=== PATIENT | male | born 1995 | race Caucasian/White ===

== ENCOUNTER 2020-07-22 16:07 | Emergency (ER) | payer SELFPAY ==
--- NOTE | 2020-07-22 16:56 | ER ---
Nurse's Notes [facility] Name: Levon Walter Age: 25 yrs Sex: Male : 1995 Arrival Date: 07/22/2020 Time: 16:14 Bed 17 Private MD: Diagnosis: Sialoadenitis, unspecified Presentation: 07/22 16:17 Chief complaint: Patient states: Left cheek swelling and pain for 2 days. No known ll1 fever. Coronavirus screen: Client denies travel out of the [place] in the last 14 days. At this time, the client does not indicate any symptoms associated with coronavirus-19. Ebola Screen: Patient denies travel to an Ebola-affected area in the 21 days before illness onset. Initial Sepsis Screen: Does the patient meet any 2 criteria? No. Patient's initial sepsis screen is negative. Risk Assessment: Do you want to hurt yourself or someone else? Patient reports no desire to harm self or others. Onset of symptoms was July 21, 2020. 16:17 Method Of Arrival: Ambulatory ll1 16:17 Acuity: LILA 3 ll1 Historical: - Allergies: 16:19 No Known Allergies; ll1 - PSHx: 16:19 None; ll1 - Immunization history:: Flu vaccine is not up to date. - Social history:: Smoking status: Patient reports the use of cigarette tobacco products, smokes one-half pack cigarettes per day, Patient/guardian denies using alcohol, street drugs. Screenin:30 Abuse screen: Denies threats or abuse. Denies injuries from another. Nutritional jl7 screening: No deficits noted. Tuberculosis screening: No symptoms or risk factors identified. Fall Risk None identified. Assessment: 16:30 General: Appears in no apparent distress. uncomfortable, Behavior is calm, cooperative, jl7 appropriate for age. Pain: Complains of pain in left jaw Pain currently is 10 out of 10 on a pain scale. Neuro: Level of Consciousness is awake, alert, obeys commands, Oriented to person, place, time, situation. Cardiovascular: Patient's skin is warm and dry. Respiratory: Airway is patent Respiratory effort is even, unlabored, Respiratory pattern is regular, symmetrical. Derm: Skin is pink, warm \T\ dry. Musculoskeletal: Swelling present in left jaw. Vital Signs: 16:17 BP 127 / 96; Pulse 69; Resp 16; Temp 98.4; Pulse Ox 100% ; Pain 10/10; ll1 ED Course: 16:14 Patient arrived in ED. mr 16:18 Triage completed. ll1 16:19 Arm band placed on Patient placed in an exam room, on a stretcher. ll1 16:21 Cierra Whyte, RN is Primary Nurse. jl7 16:21 [facility] Jim[facility]C [facility]. snw 16:21 Cristian Kuhn MD is Attending Physician. snw 16:30 Patient has correct armband on for positive identification. Bed in low position. Call jl7 light in reach. Side rails up X 1. 17:08 No provider procedures requiring assistance completed. Patient did not have IV access jl7 during this emergency room visit. Administered Medications: 17:05 Drug: Augmentin 875 mg Route: PO; jl7 17:06 Follow up: Response: Medication administered at discharge. jl7 17:06 Drug: [place] 5 mg-325 mg 1 tabs Route: PO; jl7 17:06 Follow up: Response: Medication administered at discharge. jl7 Outcome: 16:55 Discharge ordered by . snw 17:08 Discharged to home ambulatory. jl7 17:08 Condition: stable 17:08 Discharge instructions given to patient, Instructed on discharge instructions, follow up and referral plans. medication usage, Demonstrated understanding of instructions, follow-up care, medications, Prescriptions given X 2. 17:08 Patient left the ED. jl7 Signatures: Maru Jimenez FNP-C BREAKER UP-Csnw Vy Lei mr Cierra Whyte, [facility] SIMON jl7 Dereje James RN RN ll1
--- NOTE | 2020-07-22 16:56 | EDPHYS ---
Physician Documentation [facility] Name: eLvon Walter Age: 25 yrs Sex: Male : 1995 Arrival Date: 07/22/2020 Time: 16:14 Bed 17 Private MD: ED Physician Cristian Kuhn HPI: 07/22 21:27 This 25 yrs old Male presents to ER via Ambulatory with complaints of Facial snw Swelling. 21:27 Onset: The symptoms/episode began/occurred suddenly, 2 day(s) ago, and became worse and snw became persistent. Associated signs and symptoms: The patient has no apparent associated signs or symptoms. The patient has not experienced similar symptoms in the past. The patient has not recently seen a physician. Historical: - Allergies: 16:19 No Known Allergies; ll1 - PSHx: 16:19 None; ll1 - Immunization history:: Flu vaccine is not up to date. - Social history:: Smoking status: Patient reports the use of cigarette tobacco products, smokes one-half pack cigarettes per day, Patient/guardian denies using alcohol, street drugs. ROS: 21:27 Constitutional: Negative for fever, chills, and weight loss, Eyes: Negative for injury, snw pain, redness, and discharge, ENT: Negative for injury, pain, and discharge, left cheek tender, edematous Neck: Negative for injury, pain, and swelling, Cardiovascular: Negative for chest pain, palpitations, and edema, Respiratory: Negative for shortness of breath, cough, wheezing, and pleuritic chest pain, Abdomen/GI: Negative for abdominal pain, nausea, vomiting, diarrhea, and constipation, Back: Negative for injury and pain, : Negative for injury, bleeding, discharge, and swelling, MS/Extremity: Negative for injury and deformity, Skin: Negative for injury, rash, and discoloration, Neuro: Negative for headache, weakness, numbness, tingling, and seizure, Psych: Negative for depression, anxiety, suicide ideation, homicidal ideation, and hallucinations. Exam: 21:21 Constitutional: This is a well developed, well nourished patient who is awake, alert, snw and in no acute distress. Head/Face: Normocephalic, atraumatic. Left upper, lateral cheek with edema, tenderness, no dental pain, no noted abscess Eyes: Pupils equal round and reactive to light, extra-ocular motions intact. Lids and lashes normal. Conjunctiva and sclera are non-icteric and not injected. Cornea within normal limits. Periorbital areas with no swelling, redness, or edema. ENT: Nares patent. No nasal discharge, no septal abnormalities noted. Tympanic membranes are normal and external auditory canals are clear. Oropharynx with no redness, swelling, or masses, exudates, or evidence of obstruction, uvula midline. Mucous membranes moist. Neck: Trachea midline, no thyromegaly or masses palpated, and no cervical lymphadenopathy. Supple, full range of motion without nuchal rigidity, or vertebral point tenderness. No Meningismus. Chest/axilla: Normal chest wall appearance and motion. Nontender with no deformity. No lesions are appreciated. Cardiovascular: Regular rate and rhythm with a normal S1 and S2. No gallops, murmurs, or rubs. Normal PMI, no JVD. No pulse deficits. Respiratory: Lungs have equal breath sounds bilaterally, clear to auscultation and percussion. No rales, rhonchi or wheezes noted. No increased work of breathing, no retractions or nasal flaring. Abdomen/GI: Soft, non-tender, with normal bowel sounds. No distension or tympany. No guarding or rebound. No evidence of tenderness throughout. Back: No spinal tenderness. No costovertebral tenderness. Full range of motion. Skin: Warm, dry with normal turgor. Normal color with no rashes, no lesions, and no evidence of cellulitis. MS/ Extremity: Pulses equal, no cyanosis. Neurovascular intact. Full, normal range of motion. Neuro: Awake and alert, GCS 15, oriented to person, place, time, and situation. Cranial nerves II-XII grossly intact. Motor strength 5/5 in all extremities. Sensory grossly intact. Cerebellar exam normal. Normal gait. Psych: Awake, alert, with orientation to person, place and time. Behavior, mood, and affect are within normal limits. Vital Signs: 16:17 BP 127 / 96; Pulse 69; Resp 16; Temp 98.4; Pulse Ox 100% ; Pain 10/10; ll1 MDM: 16:21 Patient medically screened. snw 21:26 Data reviewed: vital signs, nurses notes. Data interpreted: Pulse oximetry: on room air snw is 100 %. Interpretation: normal. Counseling: I had a detailed discussion with the patient and/or guardian regarding: the historical points, exam findings, and any diagnostic results supporting the discharge/admit diagnosis, the need for outpatient follow up, to return to the emergency department if symptoms worsen or persist or if there are any questions or concerns that arise at home. Counseling: I had a detailed discussion with the patient and/or guardian regarding: smoking cessation. Special discussion: Based on the history and exam findings, there is no indication for further emergent testing or inpatient evaluation. I discussed with the patient/guardian the need to see a dentist for further evaluation of the symptoms. I discussed with the patient/guardian the need to see the ENT specialist for further evaluation of the symptoms. Administered Medications: 17:05 Drug: Augmentin 875 mg Route: PO; [facility] 17:06 Follow up: Response: Medication administered at discharge. [facility] 17:06 Drug: [place] 5 mg-325 mg 1 tabs Route: PO; [facility] 17:06 Follow up: Response: Medication administered at discharge. [facility] Disposition: 07/22/20 16:55 Discharged to Home. Impression: Sialoadenitis, unspecified. - Condition is Stable. - Discharge Instructions: Parotitis, Steps to Quit Smoking, Smoking Hazards, Diet and Dental Disease, Cryotherapy, Heat Therapy. - Prescriptions for Augmentin 875- 125 mg Oral Tablet - take 1 tablet by ORAL route every 12 hours for 10 days; 20 tablet. Mobic 7.5 mg Oral Tablet - take 1 tablet by ORAL route once daily take with food; 20 tablet. - Work release form, Medication Reconciliation Form, Thank You Letter, Antibiotic Education, Prescription Opioid Use form. - Follow up: Emergency Department; When: As needed; Reason: Worsening of condition. Follow up: Private Physician; When: 2 - 3 days; Reason: Recheck today's complaints, Continuance of care, Re-evaluation by your physician. Addendum: 07/27/2020 07:01 Co-signature as Attending Physician, Cristian Kuhn MD. r n Signatures: Maru Jimenez, MARRIAGE AND FAMILY SOCIAL WORKER-C MARRIAGE AND FAMILY SOCIAL WORKER-Csnw Cristian Kuhn MD MD rn Leal, Jahala RN RN jl7 Dereje James RN RN ll1 Corrections: (The following items were deleted from the chart) 09/16 17:08 16:55 07/22/2020 16:55 Discharged to Home. Impression: Sialoadenitis, unspecified. jl7 Condition is Stable. Forms are Medication Reconciliation Form, Thank You Letter, Antibiotic Education, Prescription Opioid Use. Follow up: Emergency Department; When: As needed; Reason: Worsening of condition. Follow up: Private Physician; When: 2 - 3 days; Reason: Recheck today's complaints, Continuance of care, Re-evaluation by your physician. snw
[2020-07-22] MEDS ORDERED: AMOX/K CLAV 875 MG TAB ONE (17:12)
[2020-07-22] MEDS ORDERED: HYDROCODONE/APAP 5/325 MG TAB ONE (17:12)
[2020-07-22 17:52] VITALS: BP 127/96; TEMP 98.4; O2SAT 100
== END 2020-07-22 17:08 | disposition home or self-care (01) ==
LOC: ER 16:07
DX: K11.20 Sialoadenitis, unspecified (principal); F17.210 Nicotine dependence, cigarettes, uncomplicated
CPT/HCPCS: 99283

== ENCOUNTER 2020-07-23 14:45 | Emergency (ER) | payer SELFPAY ==
[2020-07-23] MEDS ORDERED: FENTANYL CITR 100 MCG/2 ML ONE (18:05)
[2020-07-23] MEDS ORDERED: NA CHLORIDE 0.9% 2,000 ML ONE (18:05)
[2020-07-23] MEDS ORDERED: CLINDAMYCIN 600MG/D5W 600 MG/50 ML BAG IV ONE (18:05)
[2020-07-23 18:18] LABS: Absolute Lymphocytes (CBC) 1.9 K/uL (0.7-4.9); Basophils % 0.6 % (0-1.3); Hematocrit 42.7 % (39.6-49.0); Lymphocytes % 20.8 % (15.3-44.8); MPV 8.8 fL (7.6-11.3); RBC Red Blood Cell Count 4.59 M/uL (4.33-5.43)
[2020-07-23 18:32] LABS: BUN Blood Urea Nitrogen 9 mg/dL (7-18); Bicarbonate 29 mmol/L (21-32); Glucose Level 73 mg/dL (74-106); Potassium 4.3 mmol/L (3.5-5.1); Sodium Level 137 mmol/L (136-145)
--- NOTE | 2020-07-23 19:03 | RAD REPORT ---
EXAM DESCRIPTION: CT - Maxillofacial W/Cont - 07/23/2020 6:46 pm CLINICAL HISTORY: Left-sided facial pain and swelling COMPARISON: None. TECHNIQUE: Axial 2 millimeter thick images of the maxillofacial structures obtained during dynamic e nhancement using nonionic IV contrast. Sagittal and coronal reformatted images were generated and rev iewed. All CT scans are performed using dose optimization technique as appropriate and may include automated exposure control or mA/KV adjustment according to patient size. FINDINGS: Intracranial portion the examination is unremarkable. No globe or orbital content abnormal ity. Mastoid air cells are clear. Significant mucosal thickening throughout the left maxillary sinus. Paranasal sinuses are otherwise clear. No disruption of the left maxillary sinus wall. No air-fluid level in the left maxillary sinus. No facial bone fracture identified. No erosive or destructive bony process seen. Left-side maxilla de ntal decay is seen laterally. Patient has edematous/ inflammatory stranding in the midline and left-side facial soft tissues. Along the lateral margin of the maxilla there is a 9 millimeter low-density collection abutting the bone. This could be a small or early abscess. No abnormal air in the soft tissues. Parotid and submandibular gland tissues are unremarkable. IMPRESSION: Left-sided facial edematous/ inflammatory changes. A small 9 mm low-density collections abutting the lateral margin of the maxilla could be an early abscess. Prominent mucosal thickening in the left maxillary sinus without air-fluid level. No erosive or destr uctive bone component.
--- NOTE | 2020-07-23 20:43 | EDPHYS ---
Physician Documentation [facility] Name: Levon Walter Age: 25 yrs Sex: Male : 1995 Arrival Date: 07/23/2020 Time: 14:47 Bed 25 Private MD: ED Physician Alfredito Saavedra HPI: 07/23 19:31 This 25 yrs old Male presents to ER via Ambulatory with complaints of Facial snw Swelling. 19:31 Onset: The symptoms/episode began/occurred 3 day(s) ago, and became worse this morning. snw Associated signs and symptoms: The patient has no apparent associated signs or symptoms. Modifying factors: The patient symptoms are alleviated by nothing. The patient has been recently seen by a physician: The patient has been recently seen at the [facility], yesterday, by me, area is more swollen today, minimal erythema, non-toxic. CT shows worsening and possible mild, early abscess. Pt given IV Clindamycin. Will continue Augmentin and re-eval in 48 hours.. Historical: - Allergies: 15:25 No Known Allergies; em - Home Meds: 15:25 None [Active]; em - PMHx: 15:25 None; em - PSHx: 15:25 None; em - Immunization history:: Last tetanus immunization: up to date Flu vaccine is not up to date. - Social history:: Smoking status: Patient reports the use of cigarette tobacco products, denies chronic smoking, but will smoke occasionally. ROS: 19:30 Constitutional: Negative for fever, chills, and weight loss, Eyes: Negative for injury, snw pain, redness, and discharge, Neck: Negative for injury, pain, and swelling, Cardiovascular: Negative for chest pain, palpitations, and edema, Respiratory: Negative for shortness of breath, cough, wheezing, and pleuritic chest pain, Abdomen/GI: Negative for abdominal pain, nausea, vomiting, diarrhea, and constipation, Back: Negative for injury and pain, : Negative for injury, bleeding, discharge, and swelling, MS/Extremity: Negative for injury and deformity, Skin: Negative for injury, rash, and discoloration, Neuro: Negative for headache, weakness, numbness, tingling, and seizure. 19:30 ENT: Positive for left facial edema worse than yesterday, instructed to RTED if that happened. Exam: 19:29 Constitutional: This is a well developed, well nourished patient who is awake, alert, snw and in no acute distress. ENT: Nares patent. No nasal discharge, no septal abnormalities noted. Tympanic membranes are normal and external auditory canals are clear. Oropharynx with no redness, swelling, or masses, exudates, or evidence of obstruction, uvula midline. Mucous membranes moist. Neck: Trachea midline, no thyromegaly or masses palpated, and no cervical lymphadenopathy. Supple, full range of motion without nuchal rigidity, or vertebral point tenderness. No Meningismus. Chest/axilla: Normal chest wall appearance and motion. Nontender with no deformity. No lesions are appreciated. Cardiovascular: Regular rate and rhythm with a normal S1 and S2. No gallops, murmurs, or rubs. Normal PMI, no JVD. No pulse deficits. Respiratory: Lungs have equal breath sounds bilaterally, clear to auscultation and percussion. No rales, rhonchi or wheezes noted. No increased work of breathing, no retractions or nasal flaring. Abdomen/GI: Soft, non-tender, with normal bowel sounds. No distension or tympany. No guarding or rebound. No evidence of tenderness throughout. Back: No spinal tenderness. No costovertebral tenderness. Full range of motion. Skin: Warm, dry with normal turgor. Normal color with no rashes, no lesions, and no evidence of cellulitis. MS/ Extremity: Pulses equal, no cyanosis. Neurovascular intact. Full, normal range of motion. Neuro: Awake and alert, GCS 15, oriented to person, place, time, and situation. Cranial nerves II-XII grossly intact. Motor strength 5/5 in all extremities. Sensory grossly intact. Cerebellar exam normal. Normal gait. Psych: Awake, alert, with orientation to person, place and time. Behavior, mood, and affect are within normal limits. 19:29 Head/face: Noted is swelling, that is moderate, that is severe, of the left eye, left side of the nose and left zygomatic area. 19:29 Eyes: Pupils: equal, round, and reactive to light and accomodation, Extraocular movements: intact throughout, Conjunctiva: normal, Corneas: are normal. 19:29 ECG was reviewed by the Attending Physician. snw Vital Signs: 15:22 BP 145 / 95; Pulse 109; Resp 18; Temp 98.5(O); Pulse Ox 99% on R/A; Weight 54.43 kg; em Height 5 ft. 6 in. (167.64 cm); Pain 10/10; 16:25 BP 122 / 92; Pulse 72; Resp 17; Pulse Ox 100% on R/A; tw2 17:20 BP 122 / 87; Pulse 69; Resp 17; Pulse Ox 100% on R/A; tw2 18:22 BP 130 / 85; Pulse 70; Resp 17; Pulse Ox 100% on R/A; tw2 19:40 BP 124 / 89; Pulse 67; Resp 16; Temp 98.5; Pulse Ox 100% on R/A; sg 15:22 Body Mass Index 19.37 (54.43 kg, 167.64 cm) em MDM: 17:31 Patient medically screened. snw 20:43 Data reviewed: vital signs, nurses notes. Data interpreted: Pulse oximetry: on room air snw is 100 %. Interpretation: normal. Counseling: I had a detailed discussion with the patient and/or guardian regarding: the historical points, exam findings, and any diagnostic results supporting the discharge/admit diagnosis, lab results, radiology results, the need for outpatient follow up, to return to the emergency department if symptoms worsen or persist or if there are any questions or concerns that arise at home. Special discussion: Based on the history and exam findings, there is no indication for further emergent testing or inpatient evaluation. I discussed with the patient/guardian the need to see a dentist for further evaluation of the symptoms. I discussed with the patient/guardian the need to see the primary care provider for further evaluation of the symptoms. 07/23 17:33 Order name: Basic Metabolic Panel; Complete Time: 18:37 snw 07/23 17:33 Order name: Blood Culture Adult (2) snw 07/23 17:33 Order name: CBC with Diff; Complete Time: 18:37 snw 07/23 17:33 Order name: Lactate; Complete Time: 18:59 snw 07/23 17:33 Order name: Procalcitonin; Complete Time: 19:02 snw 07/23 18:18 Order name: Glucose, Ancillary Testing; Complete Time: 18:20 EDMS 07/23 17:33 Order name: CT Maxillofacial W/cont; Complete Time: 19:07 snw 07/23 20:59 Order name: Urine Dipstick--Ancillary (enter results) [facility] 07/23 20:59 Order name: Urine Dipstick-Ancillary [facility] 07/23 17:33 Order name: Accucheck; Complete Time: 18:13 snw 07/23 17:33 Order name: Cardiac monitoring; Complete Time: 18:13 snw 07/23 17:33 Order name: EKG - Nurse/Tech; Complete Time: 19:14 snw 07/23 17:33 Order name: IV Saline Lock - Large Bore; Complete Time: 18:13 snw 07/23 17:33 Order name: Labs collected and sent; Complete Time: 18:21 snw 07/23 17:33 Order name: O2 Per Protocol; Complete Time: 17:53 snw 07/23 17:33 Order name: O2 Sat Monitoring; Complete Time: 17:53 snw 07/23 17:33 Order name: Urine Dipstick-Ancillary (obtain specimen); Complete Time: 20:57 snw EC:29 Rate is 74 beats/min. Rhythm is regular. QRS [place] is Normal. RI interval is normal. QRS snw interval is normal. QT interval is normal. No Q waves. Clinical impression: NSR w/ Non-specific ST/T Changes. Administered Medications: 18:03 Drug: NS 0.9% (30 ml/kg) 30 ml/kg Route: IV; Rate: bolus; Site: left antecubital; tw2 18:03 Drug: fentaNYL (PF) 25 mcg {Note: RASS 0.} Route: IVP; Site: left antecubital; tw2 19:00 Follow up: Response: No adverse reaction; Pain is decreased; RASS: Alert and Calm (0) sg 18:20 Drug: Clindamycin 600 mg Route: IVPB; Infused Over: 30 mins; Site: left antecubital; tw2 18:59 Follow up: Response: No adverse reaction; IV Status: Completed infusion sg 20:49 Drug: Augmentin 875 mg Route: PO; sg 20:49 Drug: [place] 5 mg-325 mg 1 tabs Route: PO; sg Disposition: 07/24 14:05 Co-signature as Attending Physician, Alfredito Saavedra MD I agree with the assessment and kdr plan of care. Disposition: 07/23/20 20:41 Discharged to Home. Impression: Dental caries, unspecified, Dentofacial edema, Cellulitis of face. - Condition is Stable. - Discharge Instructions: Cellulitis, Adult, Dental Abscess, Dental Pain, Heat Therapy, [id number]. - Prescriptions for Tylenol- Codeine #3 300-30 mg Oral Tablet - take 2 tablets by ORAL route every 6 hours As needed; 14 tablet. - Medication Reconciliation Form, Thank You Letter, Antibiotic Education, Prescription Opioid Use, Work release form form. - Follow up: Emergency Department; When: As needed; Reason: Worsening of condition. Follow up: Private Physician; When: 2 - 3 days; Reason: Recheck today's complaints, Continuance of care, Re-evaluation by your physician. - Notes: Please continue Augmentin. Return to ED immediately for worsening symptoms, concerns. Signatures: Dispatcher [employer] EDMS Dajuan Palomo RN RN Alfredito Castro MD MD [facility] Maru Jimenez, SUBMARINE OPERATOR-C SUBMARINE OPERATOR-CsnIglesia Molina, RN RN Danielle Duran RN RN tw2 Corrections: (The following items were deleted from the chart) 07/23 21:03 20:41 07/23/2020 20:41 Discharged to Home. Impression: Dental caries, unspecified; sg Dentofacial edema; Cellulitis of face. Condition is Stable. Forms are Work release form, Medication Reconciliation Form, Thank You Letter, Antibiotic Education, Prescription Opioid Use. Follow up: Emergency Department; When: As needed; Reason: Worsening of condition. Follow up: Private Physician; When: 2 - 3 days; Reason: Recheck today's complaints, Continuance of care, Re-evaluation by your physician. snw
--- NOTE | 2020-07-23 20:43 | ER ---
Nurse's Notes [facility] Name: Levon Walter Age: 25 yrs Sex: Male : 1995 Arrival Date: 07/23/2020 Time: 14:47 Bed 25 Private MD: Diagnosis: Dental caries, unspecified;Dentofacial edema;Cellulitis of face Presentation: 07/23 15:22 Chief complaint: Patient states: was seen here yesterday for swollen left side of face, em was given meloxicam yesterday, but pain and swelling is getting worse. Coronavirus screen: Client denies travel out of the [place] in the last 14 days. Ebola Screen: Patient negative for fever greater than or equal to 101.5 degrees Fahrenheit, and additional compatible Ebola Virus Disease symptoms Patient denies exposure to infectious person. Patient denies travel to an Ebola-affected area in the 21 days before illness onset. No symptoms or risks identified at this time. Initial Sepsis Screen: Does the patient meet any 2 criteria? HR > 90 bpm. Does the patient have a suspected source of infection? Yes: Skin breakdown/wound. Risk Assessment: Do you want to hurt yourself or someone else? Patient reports no desire to harm self or others. Onset of symptoms was July 21, 2020. 15:22 Method Of Arrival: Ambulatory em 15:22 Acuity: LILA 3 em Historical: - Allergies: 15:25 No Known Allergies; em - Home Meds: 15:25 None [Active]; em - PMHx: 15:25 None; em - PSHx: 15:25 None; em - Immunization history:: Last tetanus immunization: up to date Flu vaccine is not up to date. - Social history:: Smoking status: Patient reports the use of cigarette tobacco products, denies chronic smoking, but will smoke occasionally. Screenin:03 Abuse screen: Denies threats or abuse. Nutritional screening: No deficits noted. tw2 Tuberculosis screening: No symptoms or risk factors identified. Fall Risk None identified. Assessment: 16:23 General: Appears in no apparent distress. uncomfortable, slender, well groomed, tw2 Behavior is calm, cooperative, appropriate for age. Pain: Complains of pain in left cheek, left jaw, left zygomatic area and left mandible. Neuro: Level of Consciousness is awake, alert, obeys commands, Oriented to person, place, time, situation. Cardiovascular: Capillary refill Patient's skin is warm and dry. Respiratory: Airway is patent Respiratory effort is even, unlabored, Respiratory pattern is regular, symmetrical. GI: No signs and/or symptoms were reported involving the gastrointestinal system. : No signs and/or symptoms were reported regarding the genitourinary system. EENT: Reports pain and swelling increased from yesterday on the left jaw and cheek area, swelling continues to under pts left eye, pt states he is taking the medications he got yesterday. Musculoskeletal: Range of motion: intact in all extremities. 17:20 Reassessment: Patient appears in no apparent distress at this time. No changes from tw2 previously documented assessment. Patient and/or family updated on plan of care and expected duration. Pain level reassessed. Patient is alert, oriented x 3, equal unlabored respirations, skin warm/dry/pink. 18:22 Reassessment: Patient appears in no apparent distress at this time. No changes from tw2 previously documented assessment. Patient and/or family updated on plan of care and expected duration. Pain level reassessed. Patient is alert, oriented x 3, equal unlabored respirations, skin warm/dry/pink. Vital Signs: 15:22 BP 145 / 95; Pulse 109; Resp 18; Temp 98.5(O); Pulse Ox 99% on R/A; Weight 54.43 kg; em Height 5 ft. 6 in. (167.64 cm); Pain 10/10; 16:25 BP 122 / 92; Pulse 72; Resp 17; Pulse Ox 100% on R/A; tw2 17:20 BP 122 / 87; Pulse 69; Resp 17; Pulse Ox 100% on R/A; tw2 18:22 BP 130 / 85; Pulse 70; Resp 17; Pulse Ox 100% on R/A; tw2 19:40 BP 124 / 89; Pulse 67; Resp 16; Temp 98.5; Pulse Ox 100% on R/A; sg 15:22 Body Mass Index 19.37 (54.43 kg, 167.64 cm) em ED Course: 14:47 Patient arrived in ED. mr 15:25 Triage completed. em 15:25 Arm band placed on. em 16:00 Danielle Duran, AURORA is Primary Nurse. tw2 16:03 Bed in low position. Call light in reach. Pulse ox on. NIBP on. tw2 16:39 Maru Jimenez F[facility]-C [facility]. snw 16:39 Alfredito Saavedra MD is Attending Physician. snw 18:03 Inserted saline lock: 20 gauge in left antecubital area, using aseptic technique. Blood tw2 collected. 18:40 Report given to AURORA Graff. tw2 18:44 Primary Nurse role handed off by Danielle Duran RN sg 18:44 Dajuan Palomo, RN is Primary Nurse. sg 18:46 CT Maxillofacial W/cont In Process Unspecified. EDMS 19:14 EKG done. sg Administered Medications: 18:03 Drug: NS 0.9% (30 ml/kg) 30 ml/kg Route: IV; Rate: bolus; Site: left antecubital; tw2 18:03 Drug: fentaNYL (PF) 25 mcg {Note: RASS 0.} Route: IVP; Site: left antecubital; tw2 19:00 Follow up: Response: No adverse reaction; Pain is decreased; RASS: Alert and Calm (0) sg 18:20 Drug: Clindamycin 600 mg Route: IVPB; Infused Over: 30 mins; Site: left antecubital; tw2 18:59 Follow up: Response: No adverse reaction; IV Status: Completed infusion sg 20:49 Drug: Augmentin 875 mg Route: PO; sg 20:49 Drug: Cummaquid 5 mg-325 mg 1 tabs Route: PO; sg Outcome: 20:41 Discharge ordered by . snw 21:03 Patient left the ED. sg Signatures: Dispatcher [employer] EDMS Dajuan Palomo, RN RN Maru Jimenez FNP-C [employer]-[facility] Vy LeiIglesia RN RN Danielle Duran RN RN tw2
[2020-07-23] MEDS ORDERED: HYDROCODONE/APAP 5/325 MG TAB ONE (21:00)
[2020-07-23] MEDS ORDERED: SMZ./TMP. 800/160 MG TABLET ONE (21:00)
[2020-07-23] MEDS ORDERED: AMOX/K CLAV 875 MG TAB ONE (21:01)
[2020-07-23 21:45] VITALS: TEMP 98.5
[2020-07-23 21:46] VITALS: O2SAT 100
[2020-07-23 21:49] VITALS: BP 124/89
[2020-07-23 21:59] LABS: Urine Blood NEGATIVE (NEG); Urine Glucose TRACE (NEG); Urine Protein NEGATIVE (NEG); Urine Specific Gravity 1.015 (1.005-1.030); Urine pH 6.5 (5.0-7.0)
== END 2020-07-23 21:03 | disposition home or self-care (01) ==
LOC: ER 14:45
DX: L03.211 Cellulitis of face (principal); K02.9 Dental caries, unspecified; F17.210 Nicotine dependence, cigarettes, uncomplicated
CPT/HCPCS: 36415; 70487; 80048; 81003; 82947; 83605; 84145; 85025; 87040; 93005; 96365; 96375; 99284; J3010; J7030; Q9967

== ENCOUNTER 2022-04-02 08:00 | Emergency (ER) | payer SELFPAY ==
[2022-04-02] MEDS ORDERED: IBUPROFEN 200 MG TAB PO ONE (08:58)
[2022-04-02] MEDS ORDERED: LIDOCAINE 4% PATCH ONE (08:58)
--- NOTE | 2022-04-02 09:51 | RAD REPORT ---
EXAM DESCRIPTION: Canelo Guido (2 Views)04/02/2022 9:32 am CLINICAL HISTORY: Chest pain/back pain COMPARISON: None FINDINGS: The lungs appear clear of acute infiltrate. The heart is normal size IMPRESSION: No acute abnormalities displayed
--- NOTE | 2022-04-02 11:33 | ER ---
Nurse's Notes [facility] Name: Levon Walter Age: 26 yrs Sex: Male : 1995 Arrival Date: 04/02/2022 Time: 08:39 Bed Waiting Private MD: Diagnosis: Dorsalgia, unspecified Presentation: 04/02 08:44 Chief complaint: Patient states: Left upper back pain x4 days, woke this morning and jl7 it's worse, worse with deep breaths and palpation. Coronavirus screen: At this time, the client does not indicate any symptoms associated with coronavirus-19. Ebola Screen: No symptoms or risks identified at this time. Initial Sepsis Screen: Does the patient meet any 2 criteria? No. Patient's initial sepsis screen is negative. Does the patient have a suspected source of infection? No. Patient's initial sepsis screen is negative. Risk Assessment: Do you want to hurt yourself or someone else? Patient reports no desire to harm self or others. Onset of symptoms was March 30, 2022. 08:44 Method Of Arrival: Ambulatory jl7 08:44 Acuity: LILA 3 jl7 Triage Assessment: 08:49 General: Appears in no apparent distress. uncomfortable, Behavior is calm, cooperative, jl7 appropriate for age. Pain: Complains of pain in left subscapular area Pain currently is 10 out of 10 on a pain scale. Neuro: Level of Consciousness is awake, alert, obeys commands, Oriented to person, place, time, situation. Cardiovascular: Patient's skin is warm and dry. Respiratory: Airway is patent Respiratory effort is even, unlabored, Respiratory pattern is regular, symmetrical. Derm: Skin is pink, warm \T\ dry. Historical: - Allergies: 08:49 No Known Allergies; jl7 - Home Meds: 08:49 Prozac Oral [Active]; Wellbutrin Oral [Active]; jl7 - PMHx: 08:49 Depressive disorder; Anxiety; jl7 - PSHx: 08:49 None; jl7 - Immunization history:: Client reports having NOT received the Covid vaccine. - Social history:: Smoking status: Patient reports the use of cigarette tobacco products, smokes one-half pack cigarettes per day. Screenin:00 Abuse screen: Denies threats or abuse. Denies injuries from another. Nutritional jl7 screening: No deficits noted. Tuberculosis screening: No symptoms or risk factors identified. Fall Risk None identified. Assessment: 08:44 General: See triage. jl7 08:45 Reassessment: OSCAR Vargas in triage assessing pt. jl7 11:38 Reassessment: Patient appears in no apparent distress at this time. Patient states jl7 feeling better. Patient states symptoms have improved. Vital Signs: 08:44 BP 136 / 95; Pulse 59; Resp 15; Temp 97.6; Pulse Ox 100% ; Weight 58.97 kg; Height 5 jl7 ft. 5 in. (165.10 cm) (R); Pain 10/10; 08:44 Body Mass Index 21.63 (58.97 kg, 165.10 cm) jl7 ED Course: 08:39 Patient arrived in ED. am2 08:49 Triage completed. jl7 08:49 Arm band placed on right wrist. jl7 08:50 Juan Crawford PA is PHCP. cp 08:50 Alfredito Saavedra MD is Attending Physician. cp 09:00 Patient has correct armband on for positive identification. jl7 09:00 No provider procedures requiring assistance completed. Patient did not have IV access jl7 during this emergency room visit. 09:34 XRAY Chest Pa And Lat (2 Views) In Process Unspecified. EDMS Administered Medications: 08:56 Drug: Lidoderm Patch 5 % (700 mg/patch) 1 patches Route: Topical; Site: affected area; jl7 11:40 Follow up: Response: No adverse reaction; Pain is decreased jl7 08:56 Drug: Ibuprofen 600 mg Route: PO; jl7 10:00 Follow up: Response: No adverse reaction; Pain is decreased jl7 Medication: 11:38 VIS not applicable for this client. jl7 Outcome: 11:32 Discharge ordered by . cp 11:38 Discharged to home ambulatory. jl7 11:38 Condition: stable 11:38 Discharge instructions given to patient, Instructed on discharge instructions, follow up and referral plans. medication usage, Demonstrated understanding of instructions, follow-up care, medications, Prescriptions given X 3. 11:38 Patient left the ED. jl7 Signatures: Dispatcher [employer] EDHI Juan Crawford PA PA cp Leal, Jahala RN RN jl7 Alysha Hairston am2
--- NOTE | 2022-04-02 11:33 | EDPHYS ---
Physician Documentation [facility] Name: Levon Walter Age: 26 yrs Sex: Male : 1995 Arrival Date: 04/02/2022 Time: 08:39 Bed Waiting Private MD: ED Physician Alfredito Saavedra HPI: 04/02 08:50 This 26 yrs old Black Male presents to ER via Ambulatory with complaints of Neck and cp Upper Back Pain. 08:50 Onset: The symptoms/episode began/occurred 3 day(s) ago. cp 08:50 The patient presents with pain that is acute, with no known mechanism of injury. cp 08:50 The symptoms are located in the left subscapular area. The pain does not radiate. cp Associated signs and symptoms: The patient has no apparent associated signs or symptoms. The problem was sustained from unknown cause. Modifying factors: the patient symptoms are aggravated by movement, deep breathing. Severity of symptoms: in the emergency department the symptoms are unchanged, despite home interventions. Patient denies injury but reports work requires frequent and heavy lifting. Pain started 4 days ago and became worse this morning upon awakening. Historical: - Allergies: 08:49 No Known Allergies; jl7 - Home Meds: 08:49 Prozac Oral [Active]; Wellbutrin Oral [Active]; jl7 - PMHx: 08:49 Depressive disorder; Anxiety; jl7 - PSHx: 08:49 None; jl7 - Immunization history:: Client reports having NOT received the Covid vaccine. - Social history:: Smoking status: Patient reports the use of cigarette tobacco products, smokes one-half pack cigarettes per day. ROS: 09:00 Back: Positive for pain at rest, pain with movement, of the left subscapular area. cp 09:00 Eyes: Negative for injury, pain, redness, and discharge. cp 09:00 Constitutional: Negative for body aches, chills, fever. 09:00 ENT: Negative for drainage from ear(s), ear pain, sore throat, difficulty swallowing, difficulty handling secretions. 09:00 Neck: Negative for pain with movement, pain at rest. 09:00 Cardiovascular: Negative for chest pain, palpitations. 09:00 Respiratory: Negative for cough, shortness of breath, wheezing. 09:00 Abdomen/GI: Negative for abdominal pain, nausea, vomiting, and diarrhea. 09:00 : Negative for urinary symptoms. 09:00 Neuro: Negative for altered mental status, headache, weakness. 09:00 All other systems are negative. Exam: 09:05 Constitutional: The patient appears in no acute distress, alert, awake, cp non-diaphoretic, non-toxic, well developed, well nourished, uncomfortable. 09:05 Head/Face: Normocephalic, atraumatic. cp 09:05 Neck: C-spine: vertebral tenderness, is not appreciated, crepitus, is not appreciated, ROM/movement: is normal, is supple, without pain, no range of motions limitations. 09:05 Chest/axilla: Inspection: normal, Palpation: is normal, no crepitus, no tenderness. 09:05 Cardiovascular: Rate: bradycardic, Rhythm: regular, Edema: is not appreciated, JVD: is not appreciated. 09:05 Respiratory: the patient does not display signs of respiratory distress, Respirations: normal, no use of accessory muscles, no retractions, labored breathing, is not present, Breath sounds: are clear throughout, no decreased breath sounds, no stridor, no wheezing. 09:05 Abdomen/GI: Inspection: abdomen appears normal, Palpation: abdomen is soft and non-tender, in all quadrants. 09:05 Back: pain, that is moderate, of the left subscapular area, ROM is painful, with all movement, no spinal tenderness to palpation noted. 09:05 Skin: cellulitis, is not appreciated, no rash present. 09:05 Neuro: Orientation: to person, place \T\ time. Mentation: is normal, Motor: moves all fours, strength is normal, Sensation: is normal. Vital Signs: 08:44 BP 136 / 95; Pulse 59; Resp 15; Temp 97.6; Pulse Ox 100% ; Weight 58.97 kg; Height 5 jl7 ft. 5 in. (165.10 cm) (R); Pain 10/10; 08:44 Body Mass Index 21.63 (58.97 kg, 165.10 cm) jl7 MDM: 11:32 Patient medically screened. cp 11:32 Data reviewed: vital signs, nurses notes, radiologic studies, plain films. cp 11:32 Test interpretation: by ED physician or midlevel provider: plain radiologic studies. cp Counseling: I had a detailed discussion with the patient and/or guardian regarding: the historical points, exam findings, and any diagnostic results supporting the discharge/admit diagnosis, radiology results, the need for outpatient follow up, a family practitioner, to return to the emergency department if symptoms worsen or persist or if there are any questions or concerns that arise at home. Response to treatment: the patient's symptoms have markedly improved after treatment, and as a result, I will discharge patient. 04/02 08:50 Order name: XRAY Chest Pa And Lat (2 Views) cp Administered Medications: 08:56 Drug: Lidoderm Patch 5 % (700 mg/patch) 1 patches Route: Topical; Site: affected area; jl7 11:40 Follow up: Response: No adverse reaction; Pain is decreased jl7 08:56 Drug: Ibuprofen 600 mg Route: PO; jl7 10:00 Follow up: Response: No adverse reaction; Pain is decreased jl7 Disposition: 12:36 Co-signature as Attending Physician, Alfredito Saavedra MD I agree with the assessment and kdr plan of care. Disposition Summary: 04/02/22 11:32 Discharge Ordered Location: Home cp Problem: new cp Symptoms: have improved cp Condition: Stable cp Diagnosis - Dorsalgia, unspecified cp Followup: cp - With: Private Physician - When: 2 - 3 days - Reason: Recheck today's complaints Discharge Instructions: - Discharge Summary Sheet cp - Acute Back Pain, Adult cp Forms: - Medication Reconciliation Form cp - Thank You Letter cp - Antibiotic Education cp - Prescription Opioid Use cp Prescriptions: - Cyclobenzaprine 10 mg Oral Tablet - take 1 tablet by ORAL route every 8 hours As needed; 20 tablet; Refills: 0, cp Product Selection Permitted - Diclofenac Sodium 75 mg Oral tablet,delayed release (DR/EC) - take 1 tablet by ORAL route 2 times per day; 20 tablet; Refills: 0, Product cp Selection Permitted - Lidoderm 5 % Topical adhesive patch,medicated - apply 1 patch by TOPICAL route once daily; 1 box; Refills: 0, Product Selection cp Permitted Signatures: Dispatcher [employer] Alfredito Paige MD MD kdr Page, Corey, PA PA Cierra Fuentes RN RN jl7
[2022-04-02 11:44] VITALS: BP 136/95; TEMP 97.6; O2SAT 100
== END 2022-04-02 11:38 | disposition home or self-care (01) ==
LOC: ER 08:00
DX: M54.9 Dorsalgia, unspecified (principal); M54.2 Cervicalgia; F32.A Depression, unspecified; F41.9 Anxiety disorder, unspecified; F17.210 Nicotine dependence, cigarettes, uncomplicated
CPT/HCPCS: 71046; 99283; J2001

== ENCOUNTER 2022-11-21 02:35 | Emergency (ER) | payer SELFPAY ==
--- OUTSIDE RECORDS SUMMARY | 2022-11-21 02:37 | XMS REPORT | Continuity of Care Document ---
:1995 Author Organization [facility] t Address [address] [place] [address] Care Team Providers Name Role Phone Unavailable Unavailable Unavailable Problems This patient has no known problems. Allergies, Adverse Reactions, Alerts This patient has no known allergies or adverse reactions. Medications This patient has no known medications. Procedures This patient has no known procedures. Encounters Start End Encounter Admission Attending Care Care Encounter Source Date/Time Date/Time Type Type Clinicians Facility Department ID 2022-08-29 2022-08-29 Outpatient [facility] SFA [id number] [place] 15:46:29 15:46:29 [address] [place] Results This patient has no known results.
--- NOTE | 2022-11-21 03:07 | EDPHYS ---
Physician Documentation [facility] Name: Levon Walter Age: 27 yrs Sex: Male : 1995 Arrival Date: 11/21/2022 Time: 02:37 Bed Waiting Private MD: ED Physician Alfredito Saavedra HPI: 11/21 03:07 This 27 yrs old Black Male presents to ER via Ambulatory with complaints of Toothache, kdr Jaw Pain. 03:07 The patient presents with broken tooth/teeth, pain, redness, swelling. The problem is kdr located in the lower right second molar. Onset: The symptoms/episode began/occurred gradually, yesterday. Duration: The symptoms are continuous. Modifying factors: The symptoms are alleviated by nothing, the symptoms are aggravated by air, chewing, food, hot fluids. Associated signs and symptoms: The patient has no apparent associated signs or symptoms. Severity of symptoms: At their worst the symptoms were mild, moderate, just prior to arrival, in the emergency department the symptoms are unchanged. The patient has experienced similar episodes in the past, chronically. The patient has not recently seen a physician. Historical: - Allergies: 02:59 No Known Allergies; bb - Home Meds: 02:59 Wellbutrin Oral [Active]; atomoxetine oral [Active]; bb - PMHx: 02:59 Anxiety; depressive disorder; ADHD; bb - PSHx: 02:59 None; bb - Immunization history:: Client reports having NOT received the Covid vaccine. - Social history:: Smoking status: . ROS: 03:07 Constitutional: Negative for fever, chills, and weight loss. kdr 03:07 ENT: Positive for dental pain, Gum pain of the lower right second molar, Teeth pain Exam: 03:07 ENT: Dental exam: abscess, dental caries, fractured teeth are noted, pain, that is kdr moderate, specifically in the lower right second molar (#31). 03:10 Constitutional: This is a well developed, well nourished patient who is awake, alert, kdr and in no acute distress. Vital Signs: 02:56 BP 129 / 90; Pulse 59; Resp 16 S; Temp 97.9(O); Pulse Ox 100% on R/A; Weight 58.97 kg bb (R); Height 5 ft. 5 in. (165.10 cm) (R); Pain 9; 02:56 Body Mass Index 21.63 (58.97 kg, 165.10 cm) bb MDM: 03:06 Patient medically screened. kdr 03:10 Data reviewed: vital signs. kdr Administered Medications: 03:06 Drug: Amoxicillin 500 mg Route: PO; bb 03:13 Follow up: Response: Medication administered at discharge. bb 03:06 Drug: Ibuprofen 800 mg Route: PO; bb 03:13 Follow up: Response: Medication administered at discharge. bb Disposition Summary: 11/21/22 03:06 Discharge Ordered Location: Home kdr Problem: new kdr Symptoms: have improved kdr Condition: Stable kdr Diagnosis - Dental Pain/abscess kdr Followup: kdr - With: Twan Resendiz DDS - When: 2 - 3 days - Reason: If symptoms return, Further diagnostic work-up, Recheck today's complaints, Continuance of care, Re-evaluation by your physician Discharge Instructions: - Discharge Summary Sheet kdr - Dental Pain, [id number] kdr - Dental Abscess, [id number] kdr - Dental Caries, Adult, [id number] kdr Forms: - Medication Reconciliation Form kdr - Thank You Letter kdr - Antibiotic Education kdr - Prescription Opioid Use kdr Prescriptions: - Amoxicillin 500 mg Oral Capsule - take 1 capsule by ORAL route every 8 hours for 10 days; 30 tablet; Refills: 0, kdr Product Selection Permitted - Ibuprofen 800 mg Oral Tablet - take 1 tablet by ORAL route every 8 hours As needed take with food; 30 tablet; kdr Refills: 0, Product Selection Permitted - Tramadol 50 mg Oral Tablet - take 1 tablet by ORAL route every 8 hours as needed; 12 tablet; Refills: 0, kdr Product Selection Permitted Signatures: Alfredito Saavedra MD MD kdr Nila Mayer, RN RN bb
--- NOTE | 2022-11-21 03:07 | ER ---
Nurse's Notes [facility] Name: Levon Walter Age: 27 yrs Sex: Male : 1995 Arrival Date: 11/21/2022 Time: 02:37 Bed Waiting Private MD: Diagnosis: Dental Pain/abscess Presentation: 11/21 02:56 Chief complaint: Patient states: he has right lower jaw pain from a toothache which bb started earlier tonight but is getting unbearable now. Coronavirus screen: At this time, the client does not indicate any symptoms associated with coronavirus-19. Ebola Screen: No symptoms or risks identified at this time. Initial Sepsis Screen: Does the patient meet any 2 criteria? No. Patient's initial sepsis screen is negative. Does the patient have a suspected source of infection? No. Patient's initial sepsis screen is negative. Risk Assessment: Do you want to hurt yourself or someone else? Patient reports no desire to harm self or others. Onset of symptoms was November 20, 2022. 02:56 Method Of Arrival: Ambulatory bb 02:56 Acuity: LILA 5 bb Triage Assessment: 02:59 General: Appears in no apparent distress. uncomfortable, Behavior is calm, cooperative. bb Pain: Complains of pain in right jaw Pain currently is 9 out of 10 on a pain scale. EENT: Reports pain in right jaw. Neuro: Level of Consciousness is awake, alert, obeys commands, Oriented to person, place, time, situation. Cardiovascular: No deficits noted. Respiratory: Respiratory effort is even, unlabored, Respiratory pattern is regular. GI: No signs and/or symptoms were reported involving the gastrointestinal system. Derm: Skin is pink, warm \T\ dry. Musculoskeletal: Circulation, motion, and sensation intact. Historical: - Allergies: 02:59 No Known Allergies; bb - Home Meds: 02:59 Wellbutrin Oral [Active]; atomoxetine oral [Active]; bb - PMHx: 02:59 Anxiety; depressive disorder; ADHD; bb - PSHx: 02:59 None; bb - Immunization history:: Client reports having NOT received the Covid vaccine. - Social history:: Smoking status: . Assessment: 03:12 Reassessment: Patient is alert, oriented x 3, equal unlabored respirations, skin bb warm/dry/pink. pt verbalized understanding of and agrees to plan of care discharge instructions given pt ambulated with steady gait to exit. Vital Signs: 02:56 BP 129 / 90; Pulse 59; Resp 16 S; Temp 97.9(O); Pulse Ox 100% on R/A; Weight 58.97 kg bb (R); Height 5 ft. 5 in. (165.10 cm) (R); Pain 9/10; 02:56 Body Mass Index 21.63 (58.97 kg, 165.10 cm) bb ED Course: 02:37 Patient arrived in ED. ja2 02:57 Alfredito Saavedra MD is Attending Physician. kdr 02:59 Triage completed. bb 02:59 Arm band placed on seen by Dr Saavedra in triage. bb 03:02 Nila Mayer, RN is Primary Nurse. bb 03:05 Twan Resendiz DDS is Referral Physician. kdr 03:13 No provider procedures requiring assistance completed. Patient did not have IV access bb during this emergency room visit. Administered Medications: 03:06 Drug: Amoxicillin 500 mg Route: PO; bb 03:13 Follow up: Response: Medication administered at discharge. bb 03:06 Drug: Ibuprofen 800 mg Route: PO; bb 03:13 Follow up: Response: Medication administered at discharge. bb Outcome: 03:06 Discharge ordered by . kdr 03:13 Patient left the ED. bb Signatures: Alfredito Saavedra MD MD kdr Nila Mayer, RN RN Zuleyma Fowler
[2022-11-21] MEDS ORDERED: AMOXICILLIN TRIHYDR 250 MG CAP ONE (03:10)
[2022-11-21] MEDS ORDERED: IBUPROFEN 400 MG TAB ONE (03:10)
[2022-11-21 03:48] VITALS: BP 129/90; TEMP 97.9; O2SAT 100
== END 2022-11-21 03:13 | disposition home or self-care (01) ==
LOC: ER 02:35
DX: K04.7 Periapical abscess without sinus (principal)
CPT/HCPCS: 99282